=== PATIENT | male | born 1960 | race Caucasian/White ===

== ENCOUNTER 2024-12-24 19:36 | Inpatient (IN) | payer OTHER ==
[2024-12-24] MEDS ORDERED: Sodium Chloride 0.9% 100 ML ONE (20:23)
[2024-12-24] MEDS ORDERED: Cefepime 2 GM VIAL ONE (20:23)
[2024-12-24 20:32] LABS: #Basophils 0.06 10x3/uL (0.0-0.2); %Basophils 0.5 % (0.0-1.0); %Eosinophils 0.4 % (0.0-10.0); %Monocytes 12.3 % (0.0-10.0); %Neutrophils 77.2 % (42.0-75.0); Hematocrit 37.7 % (42.0-52.0); Hemoglobin 12.2 g/dL (14.0-18.0); Mean Corpuscular HGB CONC 32.4 g/dL (32.0-36.0); Mean Corpuscular Hemoglobin 29.2 pg (27.0-31.0); Mean Corpuscular Volume 90.2 fL (78.0-98.0); Mean Platelet Volume 8.7 fL (7.4-10.4); Platelet Count 727 10x3/uL (130-400); RBC Distribution Width 13.1 % (11.5-14.5); Red Blood Cell (RBC) Count 4.18 mill/uL (4.70-6.10)
[2024-12-24 20:52] LABS: ALT (SGPT) 12 U/L (Less than 45); AST (SGOT) 21 U/L (11-34); Albumin 2.8 g/dL (3.1-4.5); Alkaline Phosphatase 97 U/L (40-110); Anion Gap 14 mmol/L (10-20); BUN (Urea Nitrogen) 17 mg/dL (8.4-25.7); Bilirubin, Total 0.7 mg/dL (0.3-1.2); Calc. Creatinine Clearance 0 mL/min (70-130); Calcium 8.9 mg/dL (7.8-10.44); Carbon Dioxide 22 mmol/L (23-31); Chloride 101 mmol/L (98-107); Estimated GFR 103; Globulin 4.8 g/dL (2.4-3.5); Glucose 107 mg/dL (80-115); Potassium 4.1 mmol/L (3.5-5.1); Protein, Total 7.6 g/dL (5.8-8.1); Sodium 133 mmol/L (136-145)
[2024-12-24] MEDS ORDERED: Ondansetron ODT 4 MG TAB PO PRN ×2 (23:12→23:32)
[2024-12-24] MEDS ORDERED: Ondansetron PF 4 MG/2 ML Vial IVP PRN (23:12)
[2024-12-24] MEDS ORDERED: Ketorolac Tromethamine 30 MG (1 mL) VIAL IVP PRN (23:12)
[2024-12-24] MEDS ORDERED: Lorazepam 2 MG/ML VIAL IM PRN (23:32)
[2024-12-24] MEDS ORDERED: Lorazepam 1 MG TAB PO PRN (23:32)
[2024-12-24] MEDS ORDERED: Electrolyte Replacement Protocol FS SCH (23:45)
[2024-12-24] MEDS ORDERED: Lorazepam 1 MG TAB PO SCH (23:59)
[2024-12-25 00:25] LABS: Bacteria/HPF None Seen HPF (None Seen); Bilirubin Negative (Negative); Blood, Urine Negative (Negative); CAUTI Indications for Culture Pelvic or flank pain; Clarity Clear (Clear); Glucose, Urine (Dipstick) Normal (Negative); Ketone, Urine Trace mg/dL (Negative); Leukocyte Negative Leu/uL (Negative); Nitrite Negative (Negative); Protein, Urine (Dipstick) 10 mg/dL (Neg-Trace); RBC/HPF 0-3 HPF (0-3); Specific Gravity, Urine 1.018 (1.002-1.036); Squamous Epithelial None Seen HPF (0-3); Urobilinogen Normal mg/dL (Less than 2); WBC/HPF 0-3 HPF (0-3); pH, Urine 6.5 (5.0-9.0)
[2024-12-25 00:26] LABS: Urine Culture Reflex No No
[2024-12-25] MEDS: Vancomycin (BATCH) 1.5 GM in Premix 1 BAG IVPB SCH (00:54)
[2024-12-25] MEDS ORDERED: cefTRIAXone\\ROCEPHIN 1 GM in Sodium Chloride 0.9% 100 ML IVPB SCH (02:00)
[2024-12-25] MEDS: Thiamine HCl 200 MG/2 ML VIAL SLOW IVP SCH (02:05)
[2024-12-25] MEDS: cefTRIAXone\\ROCEPHIN 1 GM in Sodium Chloride 0.9% 100 ML IVPB SCH (02:49)
[2024-12-25 03:29] VITALS: BMI 23.4
[2024-12-25 03:53] LABS: #Basophils 0.05 10x3/uL (0.0-0.2); %Basophils 0.5 % (0.0-1.0); %Eosinophils 0.5 % (0.0-10.0); %Lymphocytes 9.7 % (21.0-51.0); %Monocytes 10.1 % (0.0-10.0); %Neutrophils 78.5 % (42.0-75.0); Hematocrit 35.1 % (42.0-52.0); Hemoglobin 11.4 g/dL (14.0-18.0); Mean Corpuscular HGB CONC 32.5 g/dL (32.0-36.0); Mean Corpuscular Hemoglobin 29.5 pg (27.0-31.0); Mean Corpuscular Volume 90.9 fL (78.0-98.0); Mean Platelet Volume 8.7 fL (7.4-10.4); Platelet Count 643 10x3/uL (130-400); RBC Distribution Width 13.2 % (11.5-14.5); Red Blood Cell (RBC) Count 3.86 mill/uL (4.70-6.10)
[2024-12-25 03:54] LABS: Base Excess 0.1 mEq/L (-2.0 to +3.0); Calcium, Ionized (venous) 1.06 mmol/L (1.16-1.32); Hematocrit-VBG 36 % (42.0-52.0); Hemoglobin (Hb) 12.4 g/dL (12.6-17.4); Potassium (VBG) 3.73 mmol/L (3.70-5.30); Sodium 135 mmol/L (133-146); pH (venous) 7.433 (7.32-7.43)
[2024-12-25 04:08] LABS: ALT (SGPT) 10 U/L (Less than 45); AST (SGOT) 17 U/L (11-34); Albumin 2.3 g/dL (3.1-4.5); Alkaline Phosphatase 85 U/L (40-110); Anion Gap 14 mmol/L (10-20); BUN (Urea Nitrogen) 14 mg/dL (8.4-25.7); Bilirubin, Total 0.8 mg/dL (0.3-1.2); Calc. Creatinine Clearance 128 mL/min (70-130); Calcium 8.4 mg/dL (7.8-10.44); Carbon Dioxide 22 mmol/L (23-31); Chloride 103 mmol/L (98-107); Estimated GFR 109; Glucose 108 mg/dL (80-115); Potassium 3.6 mmol/L (3.5-5.1); Protein, Total 6.3 g/dL (5.8-8.1); Sodium 135 mmol/L (136-145)
[2024-12-25] MEDS: Clindamycin/D5W 600 MG in Premix 1 BAG IVPB SCH (05:59)
[2024-12-25] MEDS: traMADol HCl 50 MG TAB PO PRN (06:14)
[2024-12-25] MEDS ORDERED: VANCOMYCIN IVPB PRN (08:05)
[2024-12-25] MEDS ORDERED: Fluticasone Propionate Nasal Spray 16 gm Bottle NASAL SCH (09:00)
[2024-12-25] MEDS ORDERED: Multivit, Therapeutic 1 TAB PO SCH (09:00)
[2024-12-25] MEDS ORDERED: Vancomycin 1 GM in Premix 1 BAG IVPB SCH (09:00)
[2024-12-25] MEDS ORDERED: Iopamidol-370 76% 500 ML MDV (1 ML CHARGE) ONE (09:17)
[2024-12-25] MEDS: Cefepime 2 GM in Sodium Chloride 0.9% 100 ML IVPB SCH (10:00)
[2024-12-25] MEDS: Tamsulosin HCl 0.4 MG CAP PO SCH (10:02)
[2024-12-25] MEDS: Aspirin 81 mg Enteric Coated Tablet PO SCH (10:02)
[2024-12-25] MEDS: Enoxaparin 40 MG (0.4 mL) SYRINGE SC SCH (10:02)
[2024-12-25] MEDS: Folic Acid 1 MG TAB PO SCH (10:03)
[2024-12-25] MEDS: Naproxen 500 MG TAB PO SCH (10:03)
[2024-12-25] MEDS: Famotidine/PF 20 mg/2ml Vial SLOW IVP SCH (10:04)
[2024-12-25] MEDS: Pantoprazole 40 MG DR.TAB PO SCH (10:04)
[2024-12-25] MEDS: Venlafaxine 75 MG TAB PO SCH (10:04)
[2024-12-25] MEDS: Famotidine 20 MG TAB PO SCH (10:04)
[2024-12-25] MEDS: Vancomycin (BATCH) 1.75 GM in Premix 1 BAG IVPB SCH (10:14)
[2024-12-25] MEDS: Morphine 4 MG/ML VIAL SLOW IVP PRN (16:55)
[2024-12-25] MEDS: Vancomycin (BATCH) 1.25 GM in Premix 1 BAG IVPB SCH (20:07)
[2024-12-25] MEDS: Atorvastatin Calcium 10 MG TAB PO SCH (21:55)
[2024-12-25] MEDS: Artificial Tear Ophth Sol 15 ML BOT EA EYE PRN (21:57)
[2024-12-25] MEDS ORDERED: Lorazepam 1 MG TAB PO PRN (23:32)
[2024-12-26 05:59] LABS: #Basophils 0.06 10x3/uL (0.0-0.2); %Basophils 0.9 % (0.0-1.0); %Eosinophils 3.8 % (0.0-10.0); %Lymphocytes 12.9 % (21.0-51.0); %Monocytes 16.3 % (0.0-10.0); %Neutrophils 65.5 % (42.0-75.0); Hematocrit 31.1 % (42.0-52.0); Hemoglobin 9.8 g/dL (14.0-18.0); Mean Corpuscular HGB CONC 31.5 g/dL (32.0-36.0); Mean Corpuscular Hemoglobin 28.9 pg (27.0-31.0); Mean Corpuscular Volume 91.7 fL (78.0-98.0); Platelet Count 537 10x3/uL (130-400); RBC Distribution Width 13.2 % (11.5-14.5); Red Blood Cell (RBC) Count 3.39 mill/uL (4.70-6.10)
[2024-12-26 06:09] LABS: Vancomycin, Random 20.4 ug/mL (See Comment)
[2024-12-26 06:12] LABS: Anion Gap 11 mmol/L (10-20); BUN (Urea Nitrogen) 15 mg/dL (8.4-25.7); Calc. Creatinine Clearance 120 mL/min (70-130); Calcium 8.1 mg/dL (7.8-10.44); Carbon Dioxide 22 mmol/L (23-31); Chloride 105 mmol/L (98-107); Estimated GFR 106; Glucose 99 mg/dL (80-115); Potassium 4.4 mmol/L (3.5-5.1); Sodium 134 mmol/L (136-145)
[2024-12-26] MEDS: VANCOMYCIN 1.25 GM/250 ML BAG 1.25 GM in Premix 1 BAG IVPB SCH (08:19)
[2024-12-26] MEDS ORDERED: Sodium Chloride 0.9% 100 ML ONE (10:29)
[2024-12-26] MEDS ORDERED: Cefepime 2 GM VIAL ONE (10:29)
[2024-12-26] MEDS ORDERED: fentaNYL 50 mcg/mL 1 mL Vial ONE ×2 (12:06→15:00)
[2024-12-26] MEDS ORDERED: Lidocaine 2% PF 5 ML VIAL ONE (12:56)
[2024-12-26] MEDS ORDERED: Dexamethasone 20 MG/5 ML VIAL ONE (12:56)
[2024-12-26] MEDS ORDERED: Ondansetron PF 4 MG/2 ML Vial ONE ×2 (12:56→14:22)
[2024-12-26] MEDS ORDERED: fentaNYL PF 100 MCG/2 ML SYRINGE ONE (12:57)
[2024-12-26] MEDS ORDERED: PROPOFOL 20 ML ONE (12:57)
[2024-12-26] MEDS ORDERED: Midazolam HCl 2 mg/2 ml Vial ONE (12:57)
[2024-12-26] MEDS ORDERED: PHENYLEPHRINE-NS 100 MCG/ML 10 ML SYRINGE ONE ×2 (13:13→13:26)
[2024-12-26] MEDS ORDERED: ePHEDrine Sulfate 50 MG/10 ML VIAL ONE (13:19)
[2024-12-26] MEDS ORDERED: Glycopyrrolate 0.2 MG/ML 5 ML SYRINGE ONE (13:26)
[2024-12-26] MEDS ORDERED: Ondansetron HCl/PF 4 MG/2 ML Vial IVP PRN (13:42)
[2024-12-26] MEDS ORDERED: Promethazine HCl 25 MG/ML VIAL IM PRN (13:42)
[2024-12-26] MEDS ORDERED: Morphine Sulfate 2 MG/ML SYRINGE SLOW IVP PRN (13:42)
[2024-12-26] MEDS ORDERED: Ketorolac Tromethamine 30 MG (1 mL) VIAL ONE (14:22)
[2024-12-26 16:08] LABS: Synovial Fluid, Protein 3.2 g/dL (Not Available)
[2024-12-26 16:13] LABS: Synovial Fluid, Uric Acid 4.9 mg/dL (Not Available)
[2024-12-26 16:44] LABS: BF Color Yellow; Body Fluid Source Abscess Fluid; Clarity Hazy (Clear); Tube # EDTA
[2024-12-26 16:47] LABS: BF Segmented Neutrophils 92 %; Cell Count Non Hematic 2 %; Lymphocytes 6 %
[2024-12-26] MEDS: Vancomycin 1 GM in Premix 1 BAG IVPB SCH (20:25)
[2024-12-26] MEDS ORDERED: Lorazepam 1 MG TAB PO PRN (23:32)
[2024-12-26] MEDS ORDERED: Lorazepam 0.5 MG TAB PO SCH (23:59)
[2024-12-27 05:15] LABS: #Basophils Less than 0.03 10x3/uL (0.0-0.2); #Eosinophils Less than 0.03 10x3/uL (0.0-0.7); %Basophils 0.1 % (0.0-1.0); %Lymphocytes 7.3 % (21.0-51.0); %Monocytes 9.8 % (0.0-10.0); %Neutrophils 82.4 % (42.0-75.0); Hematocrit 29.7 % (42.0-52.0); Hemoglobin 9.7 g/dL (14.0-18.0); Mean Corpuscular HGB CONC 32.7 g/dL (32.0-36.0); Mean Corpuscular Hemoglobin 29.2 pg (27.0-31.0); Mean Corpuscular Volume 89.5 fL (78.0-98.0); Mean Platelet Volume 8.7 fL (7.4-10.4); Platelet Count 557 10x3/uL (130-400); RBC Distribution Width 12.9 % (11.5-14.5); Red Blood Cell (RBC) Count 3.32 mill/uL (4.70-6.10)
[2024-12-27 05:29] LABS: Anion Gap 14 mmol/L (10-20); BUN (Urea Nitrogen) 12 mg/dL (8.4-25.7); Calc. Creatinine Clearance 131 mL/min (70-130); Calcium 8.7 mg/dL (7.8-10.44); Carbon Dioxide 25 mmol/L (23-31); Chloride 98 mmol/L (98-107); Estimated GFR 109; Glucose 123 mg/dL (80-115); Potassium 4.4 mmol/L (3.5-5.1); Sodium 133 mmol/L (136-145)
[2024-12-27 08:52] VITALS: BMI 23.4
[2024-12-27 12:39] LABS: HIV (1/2) Antibody/Antigen NONREACTIVE (NonReactive); HIV 1/2 INDEX 0.05 S/CO (<1.00); Hep B Surf Ag NONREACTIVE S/CO (NonReactive); Hep C IgG Ab NONREACTIVE S/CO (NonReactive); Hep C Index 0.13 S/CO (0-0.79)
[2024-12-27] MEDS: Thiamine 100 MG TAB PO SCH (20:00)
[2024-12-27] MEDS ORDERED: Lorazepam 0.5 MG TAB PO PRN (23:32)
[2024-12-28 05:14] LABS: #Basophils 0.04 10x3/uL (0.0-0.2); %Basophils 0.6 % (0.0-1.0); %Eosinophils 1.8 % (0.0-10.0); %Lymphocytes 22.1 % (21.0-51.0); %Monocytes 14.9 % (0.0-10.0); %Neutrophils 60.1 % (42.0-75.0); Hematocrit 29.9 % (42.0-52.0); Hemoglobin 9.7 g/dL (14.0-18.0); Mean Corpuscular HGB CONC 32.4 g/dL (32.0-36.0); Mean Corpuscular Hemoglobin 29.3 pg (27.0-31.0); Mean Corpuscular Volume 90.3 fL (78.0-98.0); Mean Platelet Volume 8.6 fL (7.4-10.4); Platelet Count 528 10x3/uL (130-400); Red Blood Cell (RBC) Count 3.31 mill/uL (4.70-6.10)
[2024-12-28 05:27] LABS: Anion Gap 10 mmol/L (10-20); BUN (Urea Nitrogen) 14 mg/dL (8.4-25.7); Calc. Creatinine Clearance 126 mL/min (70-130); Calcium 8.4 mg/dL (7.8-10.44); Carbon Dioxide 27 mmol/L (23-31); Chloride 100 mmol/L (98-107); Estimated GFR 108; Glucose 85 mg/dL (80-115); Potassium 4.1 mmol/L (3.5-5.1); Sodium 133 mmol/L (136-145); Vancomycin, Random 20.3 ug/mL (See Comment)
[2024-12-29 07:04] LABS: #Basophils 0.06 10x3/uL (0.0-0.2); %Basophils 0.8 % (0.0-1.0); %Eosinophils 4.9 % (0.0-10.0); %Lymphocytes 15.2 % (21.0-51.0); %Monocytes 16.4 % (0.0-10.0); Hematocrit 35.1 % (42.0-52.0); Hemoglobin 11.3 g/dL (14.0-18.0); Mean Corpuscular HGB CONC 32.2 g/dL (32.0-36.0); Mean Corpuscular Hemoglobin 29.1 pg (27.0-31.0); Mean Corpuscular Volume 90.5 fL (78.0-98.0); Mean Platelet Volume 9.1 fL (7.4-10.4); Platelet Count 519 10x3/uL (130-400); RBC Distribution Width 13.1 % (11.5-14.5); Red Blood Cell (RBC) Count 3.88 mill/uL (4.70-6.10)
[2024-12-29 07:22] LABS: Anion Gap 14 mmol/L (10-20); BUN (Urea Nitrogen) 21 mg/dL (8.4-25.7); Calc. Creatinine Clearance 118 mL/min (70-130); Calcium 8.9 mg/dL (7.8-10.44); Carbon Dioxide 28 mmol/L (23-31); Chloride 98 mmol/L (98-107); Estimated GFR 106; Glucose 83 mg/dL (80-115); Potassium 4.8 mmol/L (3.5-5.1); Sodium 135 mmol/L (136-145)
[2024-12-29] MEDS: Acetaminophen 325 MG TAB PO PRN (15:52)
[2024-12-30 05:08] LABS: #Basophils 0.04 10x3/uL (0.0-0.2); %Basophils 0.5 % (0.0-1.0); %Eosinophils 6.6 % (0.0-10.0); %Lymphocytes 16.5 % (21.0-51.0); %Monocytes 14.2 % (0.0-10.0); %Neutrophils 61.4 % (42.0-75.0); Hematocrit 36.3 % (42.0-52.0); Mean Corpuscular HGB CONC 33.1 g/dL (32.0-36.0); Mean Corpuscular Hemoglobin 29.6 pg (27.0-31.0); Mean Corpuscular Volume 89.6 fL (78.0-98.0); Mean Platelet Volume 8.8 fL (7.4-10.4); Platelet Count 510 10x3/uL (130-400); Red Blood Cell (RBC) Count 4.05 mill/uL (4.70-6.10)
[2024-12-30 05:34] LABS: ALT (SGPT) 10 U/L (Less than 45); AST (SGOT) 23 U/L (11-34); Albumin 2.4 g/dL (3.1-4.5); Alkaline Phosphatase 78 U/L (40-110); Anion Gap 12 mmol/L (10-20); BUN (Urea Nitrogen) 25 mg/dL (8.4-25.7); Bilirubin, Total 0.3 mg/dL (0.3-1.2); Calc. Creatinine Clearance 112 mL/min (70-130); Calcium 8.9 mg/dL (7.8-10.44); Carbon Dioxide 27 mmol/L (23-31); Chloride 99 mmol/L (98-107); Estimated GFR 104; Glucose 103 mg/dL (80-115); Potassium 4.3 mmol/L (3.5-5.1); Protein, Total 6.4 g/dL (5.8-8.1); Sodium 134 mmol/L (136-145)
[2024-12-31 05:05] LABS: #Basophils 0.05 10x3/uL (0.0-0.2); %Basophils 0.7 % (0.0-1.0); %Lymphocytes 22.4 % (21.0-51.0); %Monocytes 13.2 % (0.0-10.0); %Neutrophils 55.8 % (42.0-75.0); Hematocrit 35.9 % (42.0-52.0); Hemoglobin 11.6 g/dL (14.0-18.0); Mean Corpuscular HGB CONC 32.3 g/dL (32.0-36.0); Mean Corpuscular Hemoglobin 29.1 pg (27.0-31.0); Mean Corpuscular Volume 90.2 fL (78.0-98.0); Mean Platelet Volume 8.8 fL (7.4-10.4); Platelet Count 466 10x3/uL (130-400); RBC Distribution Width 13.1 % (11.5-14.5); Red Blood Cell (RBC) Count 3.98 mill/uL (4.70-6.10)
[2024-12-31 05:15] LABS: Vancomycin, Random 21.6 ug/mL (See Comment)
[2024-12-31 05:20] LABS: ALT (SGPT) 14 U/L (Less than 45); AST (SGOT) 32 U/L (11-34); Albumin 2.5 g/dL (3.1-4.5); Alkaline Phosphatase 76 U/L (40-110); Anion Gap 10 mmol/L (10-20); BUN (Urea Nitrogen) 24 mg/dL (8.4-25.7); Bilirubin, Total 0.3 mg/dL (0.3-1.2); Calc. Creatinine Clearance 114 mL/min (70-130); Calcium 8.8 mg/dL (7.8-10.44); Carbon Dioxide 28 mmol/L (23-31); Chloride 99 mmol/L (98-107); Estimated GFR 105; Glucose 94 mg/dL (80-115); Potassium 4.3 mmol/L (3.5-5.1); Protein, Total 6.5 g/dL (5.8-8.1); Sodium 133 mmol/L (136-145)
[2025-01-01 05:05] LABS: #Basophils 0.06 10x3/uL (0.0-0.2); %Basophils 0.8 % (0.0-1.0); %Eosinophils 7.1 % (0.0-10.0); %Monocytes 13.4 % (0.0-10.0); Hematocrit 38.2 % (42.0-52.0); Hemoglobin 12.3 g/dL (14.0-18.0); Mean Corpuscular HGB CONC 32.2 g/dL (32.0-36.0); Mean Corpuscular Hemoglobin 28.8 pg (27.0-31.0); Mean Corpuscular Volume 89.5 fL (78.0-98.0); Platelet Count 435 10x3/uL (130-400); RBC Distribution Width 13.2 % (11.5-14.5); Red Blood Cell (RBC) Count 4.27 mill/uL (4.70-6.10)
[2025-01-01 05:55] LABS: ALT (SGPT) 16 U/L (Less than 45); AST (SGOT) 28 U/L (11-34); Albumin 2.6 g/dL (3.1-4.5); Alkaline Phosphatase 73 U/L (40-110); Anion Gap 12 mmol/L (10-20); BUN (Urea Nitrogen) 26 mg/dL (8.4-25.7); Bilirubin, Total 0.5 mg/dL (0.3-1.2); Calc. Creatinine Clearance 120 mL/min (70-130); Calcium 9.3 mg/dL (7.8-10.44); Carbon Dioxide 25 mmol/L (23-31); Chloride 98 mmol/L (98-107); Estimated GFR 106; Glucose 87 mg/dL (80-115); Potassium 4.4 mmol/L (3.5-5.1); Protein, Total 6.6 g/dL (5.8-8.1); Sodium 131 mmol/L (136-145)
[2025-01-03] MEDS: Ipratropium Bromide 2.5 ml Neb NEB SCH (08:23)
[2025-01-03] MEDS: Fluticasone Propionate Nasal Spray 16 gm Bottle NASAL SCH (08:50)
[2025-01-04] MEDS: traMADol HCl 50 MG TAB PO PRN (16:32)
[2025-01-04] MEDS: Enoxaparin 40 MG (0.4 mL) SYRINGE SC SCH (21:11)
[2025-01-05 05:17] LABS: #Basophils 0.03 10x3/uL (0.0-0.2); %Basophils 0.5 % (0.0-1.0); %Lymphocytes 21.8 % (21.0-51.0); %Monocytes 11.4 % (0.0-10.0); Hematocrit 43.5 % (42.0-52.0); Mean Corpuscular HGB CONC 32.2 g/dL (32.0-36.0); Mean Corpuscular Hemoglobin 28.9 pg (27.0-31.0); Mean Corpuscular Volume 89.7 fL (78.0-98.0); Mean Platelet Volume 9.3 fL (7.4-10.4); Platelet Count 342 10x3/uL (130-400); RBC Distribution Width 13.2 % (11.5-14.5); Red Blood Cell (RBC) Count 4.85 mill/uL (4.70-6.10)
[2025-01-05 06:32] LABS: Anion Gap 14 mmol/L (10-20); Carbon Dioxide 27 mmol/L (23-31)
[2025-01-05 06:33] LABS: BUN (Urea Nitrogen) 29 mg/dL (8.4-25.7); Calc. Creatinine Clearance 112 mL/min (70-130); Estimated GFR 104
[2025-01-05 06:35] LABS: Calcium 9.4 mg/dL (7.8-10.44); Chloride 100 mmol/L (98-107); Potassium 4.1 mmol/L (3.5-5.1); Sodium 137 mmol/L (136-145); Vancomycin, Random 26.3 ug/mL (See Comment)
[2025-01-05 06:36] LABS: Glucose 95 mg/dL (80-115)
[2025-01-05] MEDS: Magnesium 2 GM/50 ML(in water) 2 GM in Premix 1 BAG IVPB SCH (08:58)
[2025-01-05] MEDS: Vancomycin HCl 750 MG in Sodium Chloride 0.9% 250 ML 250 ML IVPB SCH (20:17)
[2025-01-06 20:22] VITALS: BP 124/63; TEMP 98
== END 2025-01-06 21:52 | disposition short-term general hospital (02) | DRG 464 ==
LOC: EEVIPCON 19:36 → ERS 19:36 → MSONC 12-25 00:33
PROVIDERS: ADMIT Internal Medicine; ATTEND Internal Medicine
PROC: 0JBN0ZZ Excision of Right Lower Leg Subcutaneous Tissue and Fascia, Open Approach (ICD-10-PCS; principal; 2024-12-26)
PROC: 0J9N0ZZ Drainage of Right Lower Leg Subcutaneous Tissue and Fascia, Open Approach (ICD-10-PCS; 2024-12-26)
PROC: 3E033XZ Introduction of Vasopressor into Peripheral Vein, Percutaneous Approach (ICD-10-PCS; 2024-12-26)
DX: M00.061 Staphylococcal arthritis, right knee (principal); E87.1 Hypo-osmolality and hyponatremia; L02.415 Cutaneous abscess of right lower limb; L03.115 Cellulitis of right lower limb; M19.90 Unspecified osteoarthritis, unspecified site; Z91.040 Latex allergy status; Z98.890 Other specified postprocedural states; D75.839 Thrombocytosis, unspecified; J44.9 Chronic obstructive pulmonary disease, unspecified; K21.9 Gastro-esophageal reflux disease without esophagitis; Z86.73 Personal history of transient ischemic attack (TIA), and cerebral infarction without residual deficits; N40.0 Benign prostatic hyperplasia without lower urinary tract symptoms; M60.9 Myositis, unspecified
CPT/HCPCS: 36415; 36416; 80048; 80053; 80202; 81001; 81270; 82805; 82945; 83605; 83735; 84145; 84157; 84560; 85025; 85060; 86141; 86803; 87040; 87070; 87077; 87086; 87186; 87205; 87340; 87389; 89051; 93923; 94640; 96365; 96366; 96368; J0692; J1100; J1650; J1885; J2250; J2270; J2405; J2704; J3010; J3370; J3411; J3475; J3490; J7050; J7644; Q9967